=== PATIENT | male | born 1970 | race Hispanic/Latino ===

== ENCOUNTER 2017-06-25 05:24 | Emergency (ER) | payer BC ==
[2017-06-25 05:40] VITALS: BP 152/93; PULSE 61; RESP 18; TEMP 97.8; O2SAT 95; BMI 25.8
--- NOTE | 2017-06-25 06:29 | ED PDOC ---
Arrival/HPI - General Chief Complaint: Dental Pain Time Seen by Provider: 06/25/17 06:16 Historian: Patient - History of Present Illness Narrative History of Present Illness (Text): 06/25/17 06:27 Patient presents with acute swelling of the right upper jaw this morning. He was having dental pain last couple days of bleeding to the dentist today when his lip and upper cheek started to swell up. He denies a fever chills prior dental infections no difficulty swallowing or opening his jaw. He does smoke. He denies any IV drug use or injection drug use. No difficulty breathing or tongue swelling Time/Duration: Prior to Arrival Symptom Onset: Sudden Symptom Course: Worsening Quality: Aching Severity Level: 4 Past Medical History - Provider Review Nursing Documentation Reviewed: Yes - Travel History Have you recently traveled outside [place] w/in the past 3 mons?: No - Psychiatric Hx Substance Use: Yes (marijuana) Family/Social History - Physician Review Nursing Documentation Reviewed: Yes Family/Social History: Unknown Family HX Smoking Status: Heavy Smoker > 10 Cigarettes Daily Hx Alcohol Use: No Hx Substance Use: Yes (marijuana) Allergies/Home Meds Allergies/Adverse Reactions: Allergies No Known Allergies Allergy (Verified 06/25/17 05:39) Review of Systems - Physician Review All systems were reviewed & negative as marked: Yes - Review of Systems Constitutional: absent: Fevers, Night Sweats ENT: Other (dental pain) Respiratory: Normal Physical Exam Vital Signs Temp Pulse Resp BP Pulse Ox 06/25/17 05:39 97.8 F 61 18 152/93 H 95 Temperature: Afebrile Blood Pressure: Hypertensive Pulse: Regular Respiratory Rate: Normal Pain Distress: Mild Mental Status: Positive for: Alert and Oriented X 3 - Systems Exam Head: Present: Atraumatic Pupils: Present: PERRL Extroacular Muscles: Present: EOMI Conjunctiva: Present: Normal Pharnyx: Present: Normal Medical Decision Making ED Course and Treatment: 06/25/17 06:34 Apical abscess versus buccal cellulitis patient will continue a dental appointment today we will defer any I&D of the abscess because is most likely an atypical one he is nontoxic. There is no trismus he is instructed to come back to the ER to take an appointment with his dentist started him on clindamycin 06/25/17 06:40 Patient was counseled on smoking for 3 minutes. - Medication Orders Current Medication Orders: Clindamycin HCl (Cleocin) 300 mg PO STAT STA PRN Reason: Protocol Stop: 06/25/17 06:29 Ibuprofen (Motrin Tab) 800 mg PO STAT STA Stop: 06/25/17 06:30 - Scribe Statement The provider has reviewed the documentation as recorded by the Scribe Disposition/Present on Arrival - Present on Arrival Any Indicators Present on Arrival: No History of DVT/PE: No History of Uncontrolled Diabetes: No Urinary Catheter: No History of Decub. Ulcer: No History Surgical Site Infection Following: None - Disposition Have Diagnosis and Disposition been Completed?: Yes Diagnosis: Apical abscess Disposition: HOME/ ROUTINE Disposition Time: 06:35 Patient Plan: Discharge Patient Problems: Current Active Problems Problem Status Onset Apical abscess Acute Condition: IMPROVED Discharge Instructions (ExitCare): Dental Abscess (ED) Additional Instructions: Please follow up with your dentist as soon as possible if you unable to get appointment with a dentist and the swelling continues please return to the emergency department for possible drainage and imaging. Her blood pressure was elevated today please see her primary doctor for blood pressure control. Also stop smoking!!!!!!!! Prescriptions: Clindamycin [Cleocin] 300 mg PO Q6 #40 cap Ibuprofen [Motrin] 600 mg PO Q8 PRN #30 tab PRN Reason: Pain, Moderate (4-7) Forms: [facility] (Latvian)
== END 2017-06-25 06:59 | disposition home or self-care (01) ==
LOC: ED 05:24
DX: K04.7 Periapical abscess without sinus (principal)

== ENCOUNTER 2017-06-25 17:10 | Inpatient (IN) | payer BC ==
[2017-06-25 17:10] VITALS: BMI 25.8
[2017-06-25] MEDS ORDERED: Piperacillin/Tazobact 3.375 gm 100 ML IVPB STA (17:40)
[2017-06-25] MEDS ORDERED: Vancomycin 1gm in NS 250ml 1 GM/250 ML BAG IVPB STA (17:40)
--- NOTE | 2017-06-25 17:45 | ED PDOC ---
"Arrival/HPI - General Chief Complaint: Dental Pain Time Seen by Provider: 06/25/17 17:30 Historian: Patient - History of Present Illness Narrative History of Present Illness (Text): 06/25/17 17:42 47 year old male, pmh including rt. apical abscess s/p drained today by the dentist, magdalena, complaining of rt. sided facial swelling and lower eyelid swelling x 1 day. Pt. stated that she was seen in the ER yesterday yesterday, discharge with clindamycin, went to see the dentist today and had the rt. apical abscess drained, noted to have swelling on the rt. sided face and rt. lower eyelid, no painful movement of the eye, no fever or chills, no night sweat , no palpitation, no other medical or psychological complaints. Past Medical History - Provider Review Nursing Documentation Reviewed: Yes - Psychiatric Hx Psychophysiologic Disorder: No Hx Substance Use: Yes (marijuana) Family/Social History - Physician Review Nursing Documentation Reviewed: Yes Family/Social History: Unknown Family HX Smoking Status: Heavy Smoker > 10 Cigarettes Daily Hx Alcohol Use: No Hx Substance Use: Yes (marijuana) Allergies/Home Meds Allergies/Adverse Reactions: Allergies No Known Allergies Allergy (Verified 06/25/17 17:22) Home Medications: Home Meds Medication Instructions Recorded Confirmed Clindamycin [Cleocin] 300 mg PO Q6 06/25/17 06/25/17 Review of Systems - Review of Systems Constitutional: absent: Fatigue, Fevers Eyes: absent: Vision Changes ENT: absent: Hearing Changes Respiratory: absent: SOB, Cough Cardiovascular: absent: Chest Pain Gastrointestinal: absent: Abdominal Pain, Nausea, Vomiting Musculoskeletal: absent: Arthralgias, Back Pain, Myalgias Skin: Rash. absent: Pruritis, Skin Lesions, Laceration, Abscess, Cellulitis Physical Exam Vital Signs Reviewed: Yes Vital Signs Temp Pulse Resp BP Pulse Ox 06/25/17 17:23 98.6 F 63 16 135/80 95 Temperature: Afebrile Blood Pressure: Normal Pulse: Regular Respiratory Rate: Normal Appearance: Positive for: Well-Appearing, Non-Toxic, Comfortable Pain Distress: Moderate Mental Status: Positive for: Alert and Oriented X 3 - Systems Exam Head: Present: Atraumatic, Normocephalic, Other (Facial: +rt. sided facial swelling cellulitis with the rt. infraorbital eyelid swelling with pinkish color. ) Pupils: Present: PERRL Extroacular Muscles: Present: EOMI, Other (no painful movement of the eye. ) Conjunctiva: Present: Normal Ears: Present: NORMAL TM, Normal Canal. No: Erythema Mouth: Present: Moist Mucous Membranes, Other (visible rt. apical region drained abscess hole noted, no gingival abscess. ) Pharnyx: No: ERYTHEMA, EXUDATE, TONSILS ENLARGED, Uvular Deviation, Soft Palate/ Uvular Edema Nose (External): Present: Atraumatic. No: Abrasion, Contusion Neck: Present: Normal Range of Motion Respiratory/Chest: Present: Clear to Auscultation, Good Air Exchange. No: Respiratory Distress, Accessory Muscle Use Cardiovascular: Present: Regular Rate and Rhythm, Normal S1, S2. No: Murmurs Abdomen: Present: Normal Bowel Sounds. No: Tenderness, Distention, Peritoneal Signs, Rebound, Guarding Back: Present: Normal Inspection Upper Extremity: Present: Normal Inspection. No: Cyanosis, Edema Lower Extremity: Present: Normal Inspection. No: Edema Neurological: Present: GCS=15, Speech Normal, Motor Func Grossly Intact, Gait Normal, Memory Normal Skin: Present: Warm, Dry, Normal Color Psychiatric: Present: Alert, Oriented x 3, Normal Insight, Normal Concentration Medical Decision Making ED Course and Treatment: 06/25/17 17:46 -labs -CT facial -IV vancomycin/zosyn/toradol -Observe and reassess 06/25/17 22:25 -Labs are non-significant except wbc 13.2 -CT facial show: diffuse cellulitis of the face -I discussed with the patient that he will need admission for IV antibiotic since he has no relief with the cleocin -PMD is Dr. Recinos, will admit to hospitalist -I discussed with Dr. Douglas and Dr. Lovell, discussed labs and radiology result , agreed on the admission. - Lab Interpretations Interpretation: Abnormal lab values (wbc 13.2) - RAD Interpretation Radiology Orders: 06/25/17 17:40 MAXILLOFACIAL W/CONTRAST [CT] Stat 06/25/17 22:13 CHEST PORTABLE [RAD] Stat FINDINGS: Bones/joints: No acute fracture. Soft tissues: Soft tissue surrounding the subperiosteal abscess (see below) involving the right aspect of the face demonstrates increased edema and swelling consistent with cellulitis which extends into the parietal region. This is confined to the preseptal orbit. No organized collections. Orbits: The orbits are normal. No retrobulbar infiltration. Sinuses: Mild mucosal thickening of the maxillary sinuses likely odontogenic. No air-fluid levels. Dental: Periodontal disease involving the right anterior maxillary teeth with adjacent small periodontal abscess image 154, series #3. Small adjacent air pocket also present in association with small subperiosteal abscess. This measures approximately 7 mm. Additional focus of periodontal disease is also seen involving the mandible on the right as seen on image 111 series #4, which does not demonstrate adjacent inflammation at this time. Lymph nodes: Small reactive lymph nodes are present in the upper cervical region , and submandibular region. CARLITA MYAH | Preliminary Radiology Report DRAW OPERATOR (QA) DISCREPANCY? If there is a discrepancy between the preliminary and final interpretation, please notify [facility] via [email or web address]. If you do not have access to our QA portal, call our QA team at [phone] CONFIDENTIALITY STATEMENT This report is intended only for the use of the referring physician, and only in accordance with law, If you received this in error, call [phone] Page 2 of 2 IMPRESSION: Findings are consistent with right maxillary periodontal disease complicated by a small subperiosteal abscess containing small air pocket. There is adjacent facial cellulitis which extends into the right periorbital region. Thank you for allowing us to participate in the care of your patient. Dictated and Authenticated by: Vik Gaytan MD 06/25/2017 9:54 PM Eastern Time ([place] & [place]) Hand Spring Repairer Helper: Radiologist - Medication Orders Current Medication Orders: Discontinued Medications Vancomycin HCl (Vancomycin 1gm) 1 gm in 250 mls @ 167 mls/hr IVPB STAT STA PRN Reason: Protocol Stop: 06/25/17 19:09 Last Admin: 06/25/17 19:23 Dose: 167 mls/hr eMAR Start Stop Document 06/25/17 19:23 JOL (Rec: 06/25/17 19:25 JOL [id number]) Intravenous Solution Start Date 06/25/17 Start Time 19:24 End Date 06/25/17 End time 20:54 Total Infusion Time 90 Piperacillin Sod/Tazobactam Sod (Zosyn 3.375 In Ns 100ml) 100 mls @ 200 mls/hr IVPB STAT STA PRN Reason: Protocol Stop: 06/25/17 18:09 Last Admin: 06/25/17 18:37 Dose: 200 mls/hr eMAR Start Stop Document 06/25/17 18:37 GMD (Rec: 06/25/17 18:[address] [id number] Intravenous Solution Start Date 06/25/17 Start Time 18:37 End Date 06/25/17 End time 19:07 Total Infusion Time 30 Ketorolac Tromethamine (Toradol) 30 mg IVP STAT STA Stop: 06/25/17 17:41 Last Admin: 06/25/17 18:37 Dose: 30 mg MAR Pain Assessment Document 06/25/17 18:37 GMD (Rec: 06/25/17 18:[address] [facility] [id number]) Pain Reassessment Is this a pain reassessment? No Sleep Is patient sleeping during reassessment? No Presence of Pain Presence of Pain Yes IVP Administration Document 06/25/17 18:37 GMD (Rec: 06/25/17 18:[address] [facility] [id number]) Charges for Administration # of IVP Administrations 1 - PA / DIGITAL COMPOSER / Resident Statement MD/DO has reviewed & agrees with the documentation as recorded. Disposition/Present on Arrival - Present on Arrival Any Indicators Present on Arrival: No History of DVT/PE: No History of Uncontrolled Diabetes: No Urinary Catheter: No History of Decub. Ulcer: No History Surgical Site Infection Following: None - Disposition Have Diagnosis and Disposition been Completed?: Yes Diagnosis: Diffuse cellulitis of face, Facial swelling, Failure of outpatient treatment Disposition: HOSPITALIZED Disposition Time: 22:16 Patient Plan: Admission Patient Problems: Current Active Problems Problem Status Onset Diffuse cellulitis of face Acute Facial swelling Acute Condition: STABLE Discharge Instructions (ExitCare): Cellulitis (ED) Forms: [facility] (Vietnamese)"
[2017-06-25 18:35] LABS: BASO # 0.05 K/mm3 (0.0-2.0); BASO % 0.4 % (0.0-3.0); EOS # 0.1 (0.0-0.7); EOS % 1.1 % (1.5-5.0); GRAN # 9.53 (1.4-6.5); GRAN % 72.3 % (50.0-68.0); HEMATOCRIT 41.8 % (42.0-52.0); LYMPH # 2.4 (1.2-3.4); LYMPH % 18.5 % (22.0-35.0); MEAN CELL VOLUME 87.6 fl (80.0-105.0); MEAN CORPUSCULAR HEMOGLOBIN 29.8 pg (25.0-35.0); MEAN PLATELET VOLUME 9.9 fl (7.0-11.0); MONO % 7.7 % (1.0-6.0); RED CELL DISTRIBUTION WIDTH 14.5 % (11.5-14.5); WHITE BLOOD COUNT 13.2 10^3/ul (4.5-11.0)
[2017-06-25 18:46] LABS: ALB/GLOB RATIO 1.4 (1.1-1.8); ALKALINE PHOSPHATASE 68 U/L (38-126); ALT/SGPT 23 U/L (7-56); AST/SGOT 22 U/L (17-59); BILIRUBIN,TOTAL 1.5 mg/dL (0.2-1.3); BLOOD UREA NITROGEN 16 mg/dL (7-21); CALCIUM 9.6 mg/dL (8.4-10.5); CARBON DIOXIDE 28 mmol/L (21-33); CHLORIDE 105 mmol/L (98-107); GFR AFRICAN-AMERICAN > 60; GLUCOSE,RANDOM 97 mg/dL (70-110); SODIUM 144 mmol/L (132-148); TOTAL PROTEIN 7.3 g/dL (5.8-8.3)
[2017-06-25] MEDS ORDERED: Iohexol 350 MG/100 ML VIAL ONE (20:50)
--- NOTE | 2017-06-25 23:40 | CP.PCM.HP ---
<Gilberto Mckeon - Last Filed: 06/26/17 00:32> History of Present Illness - History of Present Illness History of Present Illness: H/P For IM - TKS DO, PGY-1 CC: R Sided Facial Swelling HPI: 47 M with no PMHx presents with 2 day duration of R sided facial swelling. Patient was in the [facility] ER last night with the same complaints, but saw his dentist earlier today who found an endodontal abscess. Pt's abscess was drained at the dentist office and is still draining, and he was put on Clindamycin. When patient got home tonight, he noticed that his swelling in his R face was getting worse, to the point where it was making it hard to keep his eyes open, which is why he came into the ED. Pt denies any change in vision, any loss of vision, or any trouble breathing or swallowing. Patient further denies any difficulty hearing or difficulty in moving his facial muscles. Pt denies any pain. Pt denies f/ch/cp/sob/n/v/d/dysuria/frequency/urgency/hematuria/hematochezia/ hematemesis PSHx: Pt denies PMHx: Pt denies All: NKDA SocHx: +Tobacco; +Marijuana; +Social drinker Hosp: 06/24/17 for same complaint FamHx: Non-contributory Meds: Pt denies ROS: Constitutional: pt denies fever, chills, generalized weakness ENT: see HPI; pt denies dysphagia, otalgia, hearing deficit, rhinorrhea Eyes: see HPI; pt denies sudden loss of vision, diplopia, blurred vision MSK: pt denies muscle stiffness, joint pain, extremity cramping Cardio: pt denies sob, heart murmur, cp Pulm: pt denies cough, hemoptysis, wheeze GI: pt denies loss of appetite, abdominal pain, constipation, melena, n/v/d : pt denies burning on urination, urinary frequency, hematuria, urinary urgency Neuro: pt denies paresis, paresthesia, dizziness, flores, numbness, tingling Derm: pt denies skin changes, lesions, nail changes Endo: pt denies intolerance to heat/cold, diaphoresis, night sweats, polydipsia Psych: pt denies anxiety, depression, mood changes Present on Admission - Present on Admission Any Indicators Present on Admission: No Past Patient History - Past Social History Smoking Status: Heavy Smoker > 10 Cigarettes Daily - PSYCHIATRIC Hx Psychophysiologic Disorder: No Hx Substance Use: Yes (marijuana) - SURGICAL HISTORY Hx Surgeries: No Meds Allergies/Adverse Reactions: Allergies Allergy/AdvReac Type Severity Reaction Status Date / Time No Known Allergies Allergy Verified 06/25/17 17:22 Physical Exam - Additional Findings Additional findings: Phys Exam: VS as below Constitutional: a&o x 4, nad, well appearing Head and Neck: +Pt has periorbital swelling, with no TTP; neck supple, no jvd , trachea midline, carotid midline, no cervical/head mass Eyes: aamir, nonicteric sclera, eom intact ENT: auditory acuity grossly intact, throat not congested, no nasal deformity Cardio: rrr, no m/r/g, no carotid bruit, nml s1, s2 Pulm: no accessory muscle use, equal nml breath sounds bilaterally, ctab Abd: s/nt/nd, nbs x 4 q, no palpable masses Derm: no rashes, no ulcers, no lesions Extr: no edema, no cyanosis, no calf tenderness, no lesions, no varicosities Neuro: Cn II-XII grossly intact - no loss of functionality or sensation. Cannot smile properly d/t swelling, but no loss of muscle movement; ue and le 5/ 5 muscle strength bilaterally, no los ue, le bilaterally and core Results - Vital Signs Recent Vital Signs: Last Vital Signs Temp 98.6 F 06/25/17 17:23 Pulse 60 06/25/17 23:19 Resp 18 06/25/17 23:19 BP 135/80 06/25/17 23:19 Pulse Ox 100 06/25/17 23:19 - Labs Result Diagrams: 06/25/17 18:20 06/25/17 18:20 Labs: Laboratory Results - last 24 hr 06/25/17 06/25/17 18:20 18:20 WBC 13.2 H RBC 4.77 Hgb 14.2 Hct 41.8 L MCV 87.6 MCH 29.8 MCHC 34.0 RDW 14.5 Plt Count 207 MPV 9.9 Gran % 72.3 H Lymph % (Auto) 18.5 L [place] % (Auto) 7.7 H Eos % (Auto) 1.1 L Baso % (Auto) 0.4 Gran # 9.53 H Lymph # 2.4 [place] # 1.0 H Eos # 0.1 Baso # 0.05 Sodium 144 Potassium 4.0 Chloride 105 Carbon Dioxide 28 Anion Gap 15 BUN 16 Creatinine 0.9 Est GFR ( Amer) > 60 Est GFR (Non-Af Amer) > 60 Random Glucose 97 Calcium 9.6 Total Bilirubin 1.5 H AST 22 ALT 23 Alkaline Phosphatase 68 Total Protein 7.3 Albumin 4.2 Globulin 3.1 Albumin/Globulin Ratio 1.4 Assessment & Plan - Assessment and Plan (Free Text) Assessment: A/P 47 M presenting with peridontal abscess and facial swelling. CT Maxillofacial shows pocket indicative of abscess. No neurological deficits and recent dental procedure draining the abscess Facial swelling 2/2 peridontal abscess - Pt's security expert in tact, CT MF negative - Clindamycin IV - Tylenol PRN for fever and pain - AM Labs: CMP, CBC, Mg, Phos PPX - Protonix/SCDs - Carole 0 TKS, DO, d/w Dr. Lovell <Liliya PADRON,[facility] - Last Filed: 06/28/17 11:00> Results - Vital Signs Recent Vital Signs: Last Vital Signs Temp 98.4 F 06/26/17 10:19 Pulse 60 06/26/17 10:19 Resp 20 06/26/17 10:19 BP 142/85 06/26/17 10:19 Pulse Ox 95 06/26/17 10:19 - Labs Result Diagrams: 06/26/17 07:42 06/26/17 07:42 Attending/Attestation - Attestation I have personally seen and examined this patient.: Yes I have fully participated in the care of the patient.: Yes I have reviewed all pertinent clinical information: Yes Notes (Text): -I agree with the above H&P completed by the resident physician with the following additions and/or changes: -Pt is a 47 year old man who had a recent dental abscess drained and now is being admitted with facial cellulitis and persiting dental abscess. We will treat with empiric IV Clindamycin and keep NPO. IV Morphine for pain control, as needed. Defer to primary team to place appropriate consult in AM.
[2017-06-26 01:58] VITALS: RESP 20
[2017-06-26] MEDS ORDERED: Pantoprazole 40 mg EC Tab PO SCH (06:00)
[2017-06-26 07:47] LABS: BASO # 0.05 K/mm3 (0.0-2.0); BASO % 0.4 % (0.0-3.0); EOS # 0.2 (0.0-0.7); EOS % 1.6 % (1.5-5.0); GRAN # 9.12 (1.4-6.5); GRAN % 68.2 % (50.0-68.0); HEMATOCRIT 41.5 % (42.0-52.0); LYMPH # 2.9 (1.2-3.4); LYMPH % 21.6 % (22.0-35.0); MEAN CELL VOLUME 87.2 fl (80.0-105.0); MEAN CORPUSCULAR HEMOGLOBIN 29.8 pg (25.0-35.0); MEAN CORPUSCULAR HGB CONC 34.2 g/dl (31.0-37.0); MEAN PLATELET VOLUME 10.3 fl (7.0-11.0); MONO # 1.1 (0.1-0.6); MONO % 8.2 % (1.0-6.0); RED CELL DISTRIBUTION WIDTH 14.3 % (11.5-14.5); WHITE BLOOD COUNT 13.4 10^3/ul (4.5-11.0)
[2017-06-26 08:22] LABS: ALB/GLOB RATIO 1.4 (1.1-1.8); ALKALINE PHOSPHATASE 69 U/L (38-126); ALT/SGPT 21 U/L (7-56); AST/SGOT 21 U/L (17-59); BILIRUBIN,TOTAL 1.6 mg/dL (0.2-1.3); BLOOD UREA NITROGEN 16 mg/dL (7-21); CALCIUM 9.2 mg/dL (8.4-10.5); CARBON DIOXIDE 29 mmol/L (21-33); CHLORIDE 105 mmol/L (98-107); GFR AFRICAN-AMERICAN > 60; GLUCOSE,RANDOM 99 mg/dL (70-110); MAGNESIUM 1.9 mg/dL (1.7-2.2); PHOSPHOROUS 3.7 mg/dL (2.5-4.5); POTASSIUM 3.7 mmol/L (3.6-5.0); SODIUM 142 mmol/L (132-148)
--- NOTE | 2017-06-26 09:11 | CT ---
PROCEDURE: CT MAXILLOFACIAL BONES WITH CONTRAST HISTORY: rt. sided facial swelling s/p apical abscess drain COMPARISON: None. TECHNIQUE: Contiguous axial CT images of the maxillofacial bones were obtained following administration of IV contrast. Coronal and sagittal reformats were generated. Intravenous contrast Dose: 100 cc Omnipaque Radiation dose: Total exam DLP = 357-6.10 mGy-cm. This CT exam was performed using one or more of the following dose reduction techniques: Automated exposure control, adjustment of the mA and/or kV according to patient size, and/or use of iterative reconstruction technique. FINDINGS: NASAL BONES: Unremarkable. ORBITS: Unremarkable. PARANASAL SINUSES/ MASTOIDS: Chronic right maxillary sinus disease. MAXILLA: Cortical disruption at the junction of the maxilla and hard palate on the right likely the sequela of recent surgery. Adjacent facial soft tissue swelling identified. In addition to the cutaneous and subcutaneous edema there either inflammatory postoperative changes interposed between the skin and the maxilla. No additional abnormalities identified. MANDIBLE/ TEMPOROMANDIBULAR JOINTS: Unremarkable. SKULL BASE: Unremarkable. TEMPORAL BONES: Middle ears and mastoid grossly unremarkable. OTHER FINDINGS: None. IMPRESSION: Unilateral, right-sided Extensive facial cellulitis and more deeply situated inflammatory changes extending to the maxilla small pocket of adjacent air. No discrete drainable collection. Adjacent periodontal disease noted on the right. Concordant results (preliminary interpretation) provided by [employer]. Procedure Completed: 21:03 Preliminary ([facility]) Report: Dictated and Authenticated: 21:54 Final Interpretation: 09:09. June 26, 2017.
[2017-06-26 10:19] VITALS: BP 142/85; PULSE 60; TEMP 98.4; O2SAT 95
--- NOTE | 2017-06-26 13:26 | CP.PCM.DIS ---
<Attila Soares - Last Filed: 06/26/17 13:22> Provider - Provider Date of Admission: 06/25/17 22:24 Attending physician: Lakesha Carrera MD Time Spent in preparation of Discharge (in minutes): 45 Diagnosis - Discharge Diagnosis (1) Facial swelling Status: Acute Hospital Course - Lab Results Lab Results: Most Recent Lab Values WBC 13.4 10^3/ul (4.5-11.0) H 06/26/17 07:42 RBC 4.76 10^6/uL (3.5-6.1) 06/26/17 07:42 Hgb 14.2 g/dL (14.0-18.0) 06/26/17 07:42 Hct 41.5 % (42.0-52.0) L 06/26/17 07:42 MCV 87.2 fl (80.0-105.0) 06/26/17 07:42 MCH 29.8 pg (25.0-35.0) 06/26/17 07:42 MCHC 34.2 g/dl (31.0-37.0) 06/26/17 07:42 RDW 14.3 % (11.5-14.5) 06/26/17 07:42 Plt Count 200 10^3/uL (120.0-450.0) 06/26/17 07:42 MPV 10.3 fl (7.0-11.0) 06/26/17 07:42 Gran % 68.2 % (50.0-68.0) H 06/26/17 07:42 Lymph % (Auto) 21.6 % (22.0-35.0) L 06/26/17 07:42 [place] % (Auto) 8.2 % (1.0-6.0) H 06/26/17 07:42 Eos % (Auto) 1.6 % (1.5-5.0) 06/26/17 07:42 Baso % (Auto) 0.4 % (0.0-3.0) 06/26/17 07:42 Gran # 9.12 (1.4-6.5) H 06/26/17 07:42 Lymph # 2.9 (1.2-3.4) 06/26/17 07:42 [place] # 1.1 (0.1-0.6) H 06/26/17 07:42 Eos # 0.2 (0.0-0.7) 06/26/17 07:42 Baso # 0.05 K/mm3 (0.0-2.0) 06/26/17 07:42 Sodium 142 mmol/L (132-148) 06/26/17 07:42 Potassium 3.7 mmol/L (3.6-5.0) 06/26/17 07:42 Chloride 105 mmol/L (98-107) 06/26/17 07:42 Carbon Dioxide 29 mmol/L (21-33) 06/26/17 07:42 Anion Gap 12 (10-20) 06/26/17 07:42 BUN 16 mg/dL (7-21) 06/26/17 07:42 Creatinine 0.8 mg/dL (0.8-1.5) 06/26/17 07:42 Est GFR ( Amer) > 60 06/26/17 07:42 Est GFR (Non-Af Amer) > 60 06/26/17 07:42 Random Glucose 99 mg/dL (70-110) 06/26/17 07:42 Calcium 9.2 mg/dL (8.4-10.5) 06/26/17 07:42 Phosphorus 3.7 mg/dL (2.5-4.5) 06/26/17 07:42 Magnesium 1.9 mg/dL (1.7-2.2) 06/26/17 07:42 Total Bilirubin 1.6 mg/dL (0.2-1.3) H 06/26/17 07:42 AST 21 U/L (17-59) 06/26/17 07:42 ALT 21 U/L (7-56) 06/26/17 07:42 Alkaline Phosphatase 69 U/L (38-126) 06/26/17 07:42 Total Protein 7.0 g/dL (5.8-8.3) 06/26/17 07:42 Albumin 4.1 g/dL (3.0-4.8) 06/26/17 07:42 Globulin 2.9 gm/dL 06/26/17 07:42 Albumin/Globulin Ratio 1.4 (1.1-1.8) 06/26/17 07:42 - Hospital Course Hospital Course: 47 y/o M with no PMHx presents with 2 day duration of R sided facial swelling. Patient was in the [facility] ER last night with the same complaints, but saw his dentist earlier today who found an endodontal abscess. Pt's abscess was drained at the dentist office and is still draining, and he was put on Clindamycin. Pt noticed facial swelling was increasing and patient came to the ED. Maxillofacial CT showed right sided facial cellulitis and inflammation extending into maxilla small pocket of adjacent air. Peridontal disease noted on right also. Pt was admitted and placed on Clindamycin. Pt discharged the next day and told to complete full course of abx prescribed by Dentist. Pt will follow up with dentist next week. Pt will follow up with PMD in 1 week. Discharge Exam - Head Exam Head Exam: ATRAUMATIC, NORMAL INSPECTION, NORMOCEPHALIC - ENT Exam Additional comments: Right sided facial swelling noted. No pain on palpation. - Respiratory Exam Respiratory Exam: NORMAL BREATHING PATTERN, UNREMARKABLE - Cardiovascular Exam Cardiovascular Exam: RRR, +S1, +S2 - GI/Abdominal Exam GI & Abdominal Exam: Normal Bowel Sounds, Soft. absent: Tenderness - Extremities Exam Extremities exam: normal inspection - Neurological Exam Neurological exam: Alert, CN II-XII Intact, Oriented x3 - Psychiatric Exam Psychiatric exam: Normal Affect, Normal Mood - Skin Skin Exam: Intact, Normal Color, Warm Discharge Plan - Follow Up Plan Condition: STABLE Disposition: HOME/ ROUTINE Additional Instructions: Finish prescription of Clindamycin Follow up with Dentist in 1 week Follow up with PMD within 1 week <Lakesha Carrera - Last Filed: 06/26/17 14:11> Provider - Provider Date of Admission: 06/25/17 22:24 Attending physician: Lakesha Carrera MD Hospital Course - Lab Results Lab Results: Most Recent Lab Values WBC 13.4 10^3/ul (4.5-11.0) H 06/26/17 07:42 RBC 4.76 10^6/uL (3.5-6.1) 06/26/17 07:42 Hgb 14.2 g/dL (14.0-18.0) 06/26/17 07:42 Hct 41.5 % (42.0-52.0) L 06/26/17 07:42 MCV 87.2 fl (80.0-105.0) 06/26/17 07:42 MCH 29.8 pg (25.0-35.0) 06/26/17 07:42 MCHC 34.2 g/dl (31.0-37.0) 06/26/17 07:42 RDW 14.3 % (11.5-14.5) 06/26/17 07:42 Plt Count 200 10^3/uL (120.0-450.0) 06/26/17 07:42 MPV 10.3 fl (7.0-11.0) 06/26/17 07:42 Gran % 68.2 % (50.0-68.0) H 06/26/17 07:42 Lymph % (Auto) 21.6 % (22.0-35.0) L 06/26/17 07:42 [place] % (Auto) 8.2 % (1.0-6.0) H 06/26/17 07:42 Eos % (Auto) 1.6 % (1.5-5.0) 06/26/17 07:42 Baso % (Auto) 0.4 % (0.0-3.0) 06/26/17 07:42 Gran # 9.12 (1.4-6.5) H 06/26/17 07:42 Lymph # 2.9 (1.2-3.4) 06/26/17 07:42 [place] # 1.1 (0.1-0.6) H 06/26/17 07:42 Eos # 0.2 (0.0-0.7) 06/26/17 07:42 Baso # 0.05 K/mm3 (0.0-2.0) 06/26/17 07:42 Sodium 142 mmol/L (132-148) 06/26/17 07:42 Potassium 3.7 mmol/L (3.6-5.0) 06/26/17 07:42 Chloride 105 mmol/L (98-107) 06/26/17 07:42 Carbon Dioxide 29 mmol/L (21-33) 06/26/17 07:42 Anion Gap 12 (10-20) 06/26/17 07:42 BUN 16 mg/dL (7-21) 06/26/17 07:42 Creatinine 0.8 mg/dL (0.8-1.5) 06/26/17 07:42 Est GFR ( Amer) > 60 06/26/17 07:42 Est GFR (Non-Af Amer) > 60 06/26/17 07:42 Random Glucose 99 mg/dL (70-110) 06/26/17 07:42 Calcium 9.2 mg/dL (8.4-10.5) 06/26/17 07:42 Phosphorus 3.7 mg/dL (2.5-4.5) 06/26/17 07:42 Magnesium 1.9 mg/dL (1.7-2.2) 06/26/17 07:42 Total Bilirubin 1.6 mg/dL (0.2-1.3) H 06/26/17 07:42 AST 21 U/L (17-59) 06/26/17 07:42 ALT 21 U/L (7-56) 06/26/17 07:42 Alkaline Phosphatase 69 U/L (38-126) 06/26/17 07:42 Total Protein 7.0 g/dL (5.8-8.3) 06/26/17 07:42 Albumin 4.1 g/dL (3.0-4.8) 06/26/17 07:42 Globulin 2.9 gm/dL 06/26/17 07:42 Albumin/Globulin Ratio 1.4 (1.1-1.8) 06/26/17 07:42 Attending/Attestation - Attestation I have personally seen and examined this patient.: Yes I have fully participated in the care of the patient.: Yes I have reviewed all pertinent clinical information, including history, physical exam and plan: Yes Notes (Text): 06/26/17 14:07 Attending note; Patient seen and examined with resident. Patient is a 47-year-old male admitted with right facial swelling after right dental abscess drainage. Admitted and treated with IV Toradol and IV clindamycin. Currently swelling is significantly better as per patient. Tolerating diet. Pain is improved. Patient will follow-up with dentist on Wednesday. Diagnosis; periodontal abscess 06/26/17 14:10
== END 2017-06-26 14:33 | disposition home or self-care (01) | DRG 158 ==
LOC: ED 17:10 → ERH 22:24 → 3RNO 23:42
PROVIDERS: ADMIT Internal Medicine; ATTEND Internal Medicine
DX: K04.7 Periapical abscess without sinus (principal); L03.211 Cellulitis of face; K04.4 Acute apical periodontitis of pulpal origin; F17.210 Nicotine dependence, cigarettes, uncomplicated; R40.2412 Glasgow coma scale score 13-15, at arrival to emergency department